=== PATIENT | male | born 1990 | race Caucasian/White ===

== ENCOUNTER 2018-06-14 20:47 | Emergency (ER) | payer OTHER ==
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
[2018-06-14] MEDS ORDERED: Acetaminophen/oxyCODONE 325-5 MG Tab PO ONE (21:56)
[2018-06-14] MEDS ORDERED: Acetaminophen/HYDROcodone 325-5 MG Tab PO ONE ×3 (22:29→22:30)
--- NOTE | 2018-06-15 07:29 | CR ---
Right forearm: Two views of the right forearm were obtained. Comparison: No previous study. Fracture is identified within the distal shaft of the ulna. Mild displacement is seen by slightly greater than a cortical width. Soft tissue swelling is noted. No additional fracture or other abnormality is seen. Impression: 1. Slightly displaced distal ulnar shaft fracture. 2. Soft tissue swelling. Diagnostic code #3
== END 2018-06-14 23:00 | disposition home or self-care (01) ==
LOC: JD.ED 20:47
DX: S52.221A Displaced transverse fracture of shaft of right ulna, initial encounter for closed fracture (principal); Z87.891 Personal history of nicotine dependence; W22.8XXA Striking against or struck by other objects, initial encounter; Y99.0 Civilian activity done for income or pay
CPT/HCPCS: 29125; 73090; 99284; A9270